=== PATIENT | female | born 1950 | race Caucasian/White ===

== ENCOUNTER 2017-08-01 20:09 | Emergency (ER) | payer BC, MEDICARE ==
[2017-08-01 20:29] VITALS: BP 141/63
--- NOTE | 2017-08-01 22:53 | EDM.PDOC ---
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 She states that she developed lower abdominal cramps and nausea without emesis around 18:30, shortly after eating dinner. She felt like she was breathing fast. She checked her pulse and found it to be irregular, around 20:10. She could feel her pulse in her ears and her fingertips. No chest pain, dyspnea, or diaphoresis. No urinary symptoms. The patient told me of her symptoms. We acquired an ECG, finding sinus tachycardia with multifocal PVCs. Based on this, I recommended that the patient check herself in to be evaluated. The patient states that she had similar symptoms last week, but they resolved fairly quickly, and the patient did not seek medical evaluation. The patient states that she suffered a [place] in 2008. At that time, she presented with bilateral antecubital pain, but never had chest pain, dyspnea, nausea, or diaphoresis. Further, her ECG was normal at the time. The patient's last stress test was in 2011. The patient denies skipping any medicines recently. The patient's PCP is Dr. Carney. - Related Data Allergies Allergy/AdvReac Type Severity Reaction Status Date / Time Penicillins Allergy Rash Verified 08/01/17 20:30 Home Meds: Home Meds Aspirin 81 mg PO BEDTIME 07/05/15 [History] Cholecalciferol (Vitamin D3) [Vitamin D3] 2,000 units PO BEDTIME 07/05/15 [ History] Clopidogrel [Plavix] 75 mg PO BEDTIME 07/05/15 [History] Losartan [Cozaar] 50 mg PO BEDTIME 07/05/15 [History] Pantoprazole [ProTONIX] 40 mg PO BEDTIME 07/05/15 [History] Rosuvastatin Calcium [Crestor] 20 mg PO BEDTIME 07/05/15 [History] Zolpidem Tartrate [Ambien] 5 mg PO BEDTIME 07/05/15 [History] metFORMIN [Glucophage] 1,000 mg PO BEDTIME 07/05/15 [History] Dapagliflozin Propanediol [Farxiga] 10 mg PO BEDTIME 08/01/17 [History] Metoprolol Tartrate 12.5 mg PO BEDTIME 08/01/17 [History] Venlafaxine [Effexor XR] 75 mg PO BEDTIME 08/01/17 [History] Past Medical History Cardiovascular History: Reports: CAD, High Cholesterol, Hypertension, [place] (2009) Gastrointestinal History: Reports: GERD 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: Musculoskeletal History: Reports: Arthritis, Osteoporosis Psychiatric History: Reports: Depression Endocrine/Metabolic History: Reports: Diabetes, Type II, Obesity/BMI 30+ - Infectious Disease History Infectious Disease History: Reports: Chicken Pox, Shingles - Past Surgical History HEENT Surgical History: Reports: Oral Surgery Cardiovascular Surgical History: Reports: Coronary Artery Stent (x , 2008), Vascular Surgery (Sclerotherapy bilateral lower extremities) GI Surgical History: Reports: Cholecystectomy Social & Family History - Tobacco Use Smoking Status *Q: Former Smoker Years of Tobacco use: 37 Packs/Tins Daily: 0.8 Month Tobacco Last Used: Quit 2008 - Caffeine Use Caffeine Use: Reports: Coffee - Alcohol Use Alcohol Use History: Yes Alcohol Use Frequency: Rarely - Recreational Drug Use Recreational Drug Use: No - Living Situation & Occupation Living situation: Reports: , with Spouse, with Family (2 grandchildren) 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 ED EXAM, GENERAL - Physical Exam Exam: See Below Exam Limited By: No Limitations General Appearance: Alert, WD/WN, No Apparent Distress Eye Exam: Bilateral Eye: Normal Inspection Ears: Normal External Exam, Hearing Grossly Normal Nose: Normal Inspection, No Blood Throat/Mouth: Normal Inspection, Normal Lips, Normal Voice, No Airway Compromise Head: Atraumatic, Normocephalic Neck: Normal Inspection, Full Range of Motion Respiratory/Chest: No Respiratory Distress, Lungs Clear, Normal Breath Sounds, No Accessory Muscle Use Cardiovascular: Normal Peripheral Pulses, Regular Rate, Rhythm, No Gallop, No JVD, No Murmur, No Rub Peripheral Pulses: 4+: Radial (L), Radial (R) GI/Abdominal: Normal Bowel Sounds, Soft, Non-Tender, No Organomegaly, No Distention, No Abnormal Bruit, No Mass, Other (Obese) (Female) Exam: Deferred Rectal (Female) Exam: Deferred Extremities: Normal Inspection, Normal Range of Motion, No Pedal Edema, Normal Capillary Refill Neurological: Alert, Oriented, Normal Cognition, No Motor/Sensory Deficits Psychiatric: Normal Affect Skin Exam: Warm, Dry, Intact, Normal Color, No Rash EKG INTERPRETATION EKG Date: 08/01/17 Time: 19:43 Rhythm: Other (Sinus tachycardia with multifocal PVC's) Rate (Beats/Min): 110 [place]: Normal P-Wave: Present QRS: Normal ST-T: Normal QT: Normal Comparison: NA - No Prior EKG Course - Vital Signs Last Recorded V/S: Last Vital Signs Temp 36.2 C 08/01/17 20:18 Pulse 105 H 08/01/17 20:18 Resp 18 08/01/17 20:18 BP 141/63 H 08/01/17 20:18 Pulse Ox 95 08/01/17 20:18 - Orders/Labs/Meds Orders: Active Orders 24 hr Category Date Time Status EKG Documentation Completion [RC] STAT Care 08/01/17 21:10 Active Chest 2V [CR] Stat Exams 08/01/17 21:10 Taken Labs: Laboratory Tests 08/01/17 08/01/17 08/01/17 Range/Units 21:25 21:25 21:25 WBC 8.43 (3.98-10.04) K/mm3 RBC 5.04 (3.98-5.22) M/mm3 Hgb 14.5 (11.2-15.7) gm/L Hct 43.9 (34.1-44.9) % MCV 87.1 (79.4-94.8) fl MCH 28.8 (25.6-32.2) pg MCHC 33.0 (32.2-35.5) g/dl RDW Std Deviation 42.2 (36.4-46.3) fL Plt Count 213 (182-369) K/mm3 MPV 9.9 (9.4-12.3) fl Neutrophils % (Manual) 60 (40-60) % Band Neutrophils % 0 (0-10) % Lymphocytes % (Manual) 21 (20-40) % Atypical Lymphs % 4 % Monocytes % (Manual) 11 H (2-10) % Eosinophils % (Manual) 3 (0.7-5.8) % Basophils % (Manual) 1 (0.1-1.2) Platelet Estimate Adequate Plt Morphology Comment Normal RBC Morph Comment Normal PT 10.9 (8.0-13.0) SECONDS INR 1.02 APTT 26 (22-36) SECONDS D-Dimer, Quantitative 0.32 (0.19-0.59) mg/L Sodium 138 (136-145) mEq/L Potassium 3.7 (3.5-5.1) mEq/L Chloride 103 (98-107) mEq/L Carbon Dioxide 23 (21-32) mEq/L Anion Gap 15.7 H (5-15) BUN 16 (7-18) mg/dL Creatinine 1.0 (0.55-1.02) mg/dL Est Cr Clr Drug Dosing 52.50 mL/min Estimated GFR (MDRD) 56 (>60) mL/min BUN/Creatinine Ratio 16.0 (14-18) Glucose 160 H (80-115) mg/dL Calcium 9.6 (8.5-10.1) mg/dL Total Bilirubin 0.4 (0.2-1.0) mg/dL AST 27 (15-37) U/L ALT 27 (14-59) U/L Alkaline Phosphatase 105 (46-116) U/L Troponin I < 0.017 (0.00-0.056) ng/mL Total Protein 7.3 (6.4-8.2) g/dl Albumin 3.8 (3.4-5.0) g/dl Globulin 3.5 gm/dL Albumin/Globulin Ratio 1.1 (1-2) - Re-Assessments/Exams Free Text/Narrative Re-Assessment/Exam: 08/01/17 23:28 Repeat ECG 07/24/2017 at 21:20 demonstrates a normal sinus rhythm at [address] or T-wave changes. No Q-waves are seen. No LAD. No LVH. No PVCs. This is an essentially normal ECG. 08/01/17 22:48 Two-view chest radiograph appears to be grossly normal. Cardiac silhouette is within normal limits. No pulmonary vascular congestion. No pleural effusions. No focal infiltrate. No pneumothorax. Formal read per the Radiologist pending. 08/01/17 22:52 Test results discussed with the patient. Today's workup is unremarkable, but excludes a PE or recent cardiac event. I will discharge her home. I would like her to notify the office of Dr. Carney of her ER visit. Departure - Departure Time of Disposition: 22:52 Disposition: Home, Self-Care 01 Condition: Good Clinical Impression: Frequent PVCs Instructions: Premature Ventricular Contraction Referrals: Siddhartha Carney MD [Primary Care Provider] - Forms: ED Department Discharge Additional Instructions: You were seen in the emergency room for rapid breathing and an irregular pulse. Workup in the ER included blood work, two ECGs, and a chest x-ray. Your initial ECG showed several PVCs, although your second ECG showed none. The PVCs were likely the cause of your palpitations. The cause of these recent PVCs is unknown. You have not suffered a blood clot to your lungs. You have not suffered a heart attack. Your electrolytes are normal. We recommend that you notify the office of your PCP, Dr. Carney, of your ER visit. If any other problems, please do not hesitate to return to the ER. - My Orders Last 24 Hours: My Active Orders 08/01/17 21:10 EKG Documentation Completion [RC] STAT Chest 2V [CR] Stat - Assessment/Plan Last 24 Hours: My Active Orders 08/01/17 21:10 EKG Documentation Completion [RC] STAT Chest 2V [CR] Stat
--- NOTE | 2017-08-02 07:16 | CR ---
Chest: Two views of the chest were obtained. Comparison: Prior chest x-ray of 06/07/11. Heart size is normal. Tortuous thoracic aorta is seen. Lungs are clear with no acute parenchymal densities. Bony structures show mild scoliosis within the spine. Previous cholecystectomy is noted. Impression: 1. Incidental findings. Nothing acute is appreciated on two-view chest x-ray. Diagnostic code #2
== END 2017-08-01 22:59 | disposition home or self-care (01) ==
LOC: JD.ED 20:09
DX: I49.3 Ventricular premature depolarization (principal); E78.00 Pure hypercholesterolemia, unspecified; I10 Essential (primary) hypertension; E11.9 Type 2 diabetes mellitus without complications; Z88.0 Allergy status to penicillin; Z79.899 Other long term (current) drug therapy; Z87.891 Personal history of nicotine dependence
CPT/HCPCS: 36415; 71046; 71046-26; 80053; 84484; 85025; 85379; 85610; 85730; 93005; 93010; 99284-25; 99285-25

== ENCOUNTER 2018-06-14 19:03 | Emergency (ER) | payer BC, MEDICARE ==
[2018-06-14 19:12] VITALS: BP 145/80
[2018-06-14] MEDS ORDERED: Oxymetazoline 0.05% Nasal Spray 15 ML Bottle NAS ONE (19:13)
[2018-06-14] MEDS ORDERED: Oxymetazoline 0.05% Nasal Spray 15 ML Bottle ONE (19:14)
--- NOTE | 2018-06-14 19:30 | EDM.PDOC ---
ED HPI GENERAL MEDICAL PROBLEM - General Chief Complaint: ENT Problem Stated Complaint: NOSEBLEED Time Seen by Provider: 06/14/18 19:04 Source of Information: Reports: Patient History Limitations: Reports: No Limitations - History of Present Illness INITIAL COMMENTS - FREE TEXT/NARRATIVE: This is a 68-year-old female. About 5 PM this evening she blew her nose she noted a little red tinge to the drainage. Then around 6:30 she felt like her nose was running when she reached up he was bleeding. The bleedings out the left nasal passage. She does take Plavix and low-dose aspirin on a daily basis. She states she's never had a bleeding nose before. She denies any recent colds or coughs. She denies any other acute symptoms. She does have an active drip and stream of blood out the left nasal passage. - Related Data Allergies Allergy/AdvReac Type Severity Reaction Status Date / Time Penicillins Allergy Rash Verified 08/01/17 20:30 Home Meds: Home Meds Aspirin 81 mg PO BEDTIME 07/05/15 [History] Cholecalciferol (Vitamin D3) [Vitamin D3] 2,000 units PO BEDTIME 07/05/15 [ History] Clopidogrel [Plavix] 75 mg PO BEDTIME 07/05/15 [History] Losartan [Cozaar] 50 mg PO BEDTIME 07/05/15 [History] Pantoprazole [ProTONIX] 40 mg PO BEDTIME 07/05/15 [History] Rosuvastatin Calcium [Crestor] 20 mg PO BEDTIME 07/05/15 [History] Zolpidem Tartrate [Ambien] 5 mg PO BEDTIME 07/05/15 [History] metFORMIN [Glucophage] 1,000 mg PO BEDTIME 07/05/15 [History] Dapagliflozin Propanediol [Farxiga] 10 mg PO BEDTIME 08/01/17 [History] Metoprolol Tartrate 12.5 mg PO BEDTIME 08/01/17 [History] Venlafaxine [Effexor XR] 75 mg PO BEDTIME 08/01/17 [History] Past Medical History Cardiovascular History: Reports: CAD, High Cholesterol, Hypertension, [place] Gastrointestinal History: Reports: GERD 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: Musculoskeletal History: Reports: Arthritis, Osteoporosis Psychiatric History: Reports: Depression Endocrine/Metabolic History: Reports: Diabetes, Type II, Obesity/BMI 30+ - Infectious Disease History Infectious Disease History: Reports: Chicken Pox, Shingles - Past Surgical History HEENT Surgical History: Reports: Oral Surgery Cardiovascular Surgical History: Reports: Coronary Artery Stent, Vascular Surgery GI Surgical History: Reports: Cholecystectomy Social & Family History - Family History Family Medical History: Noncontributory - Tobacco Use Smoking Status *Q: Former Smoker Used Tobacco, but Quit: Yes Month/Year Tobacco Last Used: 2009 Second Hand Smoke Exposure: No - Caffeine Use Caffeine Use: Reports: Coffee, Soda - Recreational Drug Use Recreational Drug Use: No - Living Situation & Occupation Living situation: Reports: , with Spouse, with Family (2 grandchildren) 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 - Review of Systems Review Of Systems: See Below Constitutional: Denies: Fever, Chills HEENT: Reports: Nosebleed Respiratory: Reports: No Symptoms Cardiovascular: Reports: No Symptoms Endocrine: Reports: No Symptoms GI/Abdominal: Reports: No Symptoms : Reports: No Symptoms Musculoskeletal: Reports: No Symptoms Skin: Reports: No Symptoms Neurological: Reports: No Symptoms Psychiatric: Reports: No Symptoms Hematologic/Lymphatic: Reports: No Symptoms ED EXAM, ENT - Physical Exam Exam: See Below Exam Limited By: No Limitations General Appearance: Alert, WD/WN, Anxious Eye Exam: Bilateral Eye: Normal Inspection Ears: Normal External Exam Nose: Active Bleeding, Other (The left nasal passage has active bleeding, I cannot see the actual bleeding site because of the blood and there is no possible way to cauterize it at this time) Mouth/Throat: Other (The blood is going down the back of her throat as well and she is spitting it out through her mouth.) Head: Normocephalic Neck: Supple Respiratory/Chest: No Respiratory Distress, Lungs Clear, Normal Breath Sounds Cardiovascular: Regular Rate, Rhythm, No Murmur GI/Abdominal: Soft Back: Full Range of Motion Extremities: Normal Inspection, Normal Range of Motion Neurological: Alert, Oriented Psychiatric: Anxious Skin: Warm, Dry ED ENT PROCEDURES - Epistaxis Procedure Indication: Uncontrolled Recent anticoagulants/antiplatlets: Yes (She is on Plavix and low-dose aspirin because she has stents) Uncontrolled HTN: No Recent septal/nasal surgery: No Site of bleeding: Left Nare, Posterior Clearing of clots: Patient Blew Nose Topical Meds: Topical Cocaine, Other (Afrin nasal spray) Ice pack to area: No Posterior packing: Other (Used a Rhino Rocket 5.5 cm coated with topical cocaine , there was immediate cessation of the nosebleed as I inflated the balloon.) Complications: No Course - Vital Signs Last Recorded V/S: Last Vital Signs Temp 97.7 F 06/14/18 19:08 Pulse 109 H 06/14/18 19:08 Resp 18 06/14/18 19:08 BP 145/80 H 06/14/18 19:08 Pulse Ox 98 06/14/18 19:08 - Orders/Labs/Meds Meds: Medications Discontinued Medications Generic Name Dose Route Start Last Admin Trade Name Nicole PRN Reason Stop Dose Admin Cocaine HCl 4 ml 06/14/18 19:11 06/14/18 19:14 Cocaine Hcl TOP 06/14/18 19:12 4 ml ONETIME ONE Administration Cocaine HCl Confirm 06/14/18 19:13 Cocaine Hcl Administered 06/14/18 19:14 Dose 4 ml .ROUTE .STK-MED ONE Oxymetazoline HCl 1 ml 06/14/18 19:13 06/14/18 19:14 Afrin Original 0.05% Nasal Ruston SHIVANI 06/14/18 19:14 1 spray ONETIME ONE Administration Oxymetazoline HCl Confirm 06/14/18 19:14 Afrin Original 0.05% Nasal Ruston Administered 06/14/18 19:15 Dose 15 ml .ROUTE .STK-MED ONE - Re-Assessments/Exams Free Text/Narrative Re-Assessment/Exam: 06/14/18 19:53 Patient has been doing well since I put in the Rhino Rocket. There is no bleeding from the nasal passage and no posterior bleeding down the pharynx. We have pumped the balloon up and she feels comfortable with that. I explained she needs to take it out in 24 hours by someone who knows how to take out the Rhino Rocket by putting saline on the cloth first and then deflating and gently wiggling it until it falls out. She understands. Departure - Departure Time of Disposition: 19:55 Disposition: Home, Self-Care 01 Condition: Good Clinical Impression: Epistaxis - Discharge Information *PRESCRIPTION DRUG MONITORING PROGRAM REVIEWED*: Not Applicable *COPY OF PRESCRIPTION DRUG MONITORING REPORT IN PATIENT NATHALY: Not Applicable Referrals: Siddhartha Carney MD [Primary Care Provider] - Forms: ED Department Discharge Additional Instructions: Do not touch or push on the Rhino Rocket leave it in place, in 24 hours go to a walk-in clinic or return to the ER for removal of the Rhino Rocket. Be certain they saturate the cloth with saline as they deflate the balloon and then gently wiggle the Rhino Rocket until it slides out, if there are any problems prior to this return to the ER for evaluation.
== END 2018-06-14 20:00 | disposition home or self-care (01) ==
LOC: JD.ED 19:03
DX: R04.0 Epistaxis (principal); E78.00 Pure hypercholesterolemia, unspecified; I10 Essential (primary) hypertension; I25.2 Old myocardial infarction; K21.9 Gastro-esophageal reflux disease without esophagitis; Z87.891 Personal history of nicotine dependence; Z79.01 Long term (current) use of anticoagulants; Z88.0 Allergy status to penicillin; Z79.82 Long term (current) use of aspirin; Z79.899 Other long term (current) drug therapy; Z79.84 Long term (current) use of oral hypoglycemic drugs
CPT/HCPCS: 30903; 99283-25

== ENCOUNTER 2018-06-15 14:14 | Emergency (ER) | payer BC, MEDICARE ==
[2018-06-15 14:26] VITALS: BP 136/74
--- NOTE | 2018-06-15 14:56 | EDM.PDOC ---
ED HPI GENERAL MEDICAL PROBLEM - General Chief Complaint: ENT Problem Stated Complaint: NOSEBLEED, PRESSURE AND HEADACHE Time Seen by Provider: 06/15/18 14:33 Source of Information: Reports: Patient, RN Notes Reviewed - History of Present Illness INITIAL COMMENTS - FREE TEXT/NARRATIVE: 68-year-old female comes in with nasal and left facial pain. To our ED about 20 hours ago with left nose bleed, quite severe. Left nasal balloon was placed I believe an AP Rhino Rocket. See that record for details. Told that she could come back in about 24 hours to have that removed. She started having more severe discomfort over the last few hours and now is having some slight oozing when she touches the distal end of the gauze of the balloon. There is no active bleeding from the distal nares and also she is not having current drainage down the back of her throat. She is on Plavix and aspirin. Those have both been stopped. Left Eye Pain Score (Numeric/FACES): 7 - Related Data Allergies Allergy/AdvReac Type Severity Reaction Status Date / Time Penicillins Allergy Rash Verified 08/01/17 20:30 Home Meds: Home Meds Aspirin 81 mg PO BEDTIME 07/05/15 [History] Cholecalciferol (Vitamin D3) [Vitamin D3] 2,000 units PO BEDTIME 07/05/15 [ History] Clopidogrel [Plavix] 75 mg PO BEDTIME 07/05/15 [History] Losartan [Cozaar] 50 mg PO BEDTIME 07/05/15 [History] Pantoprazole [ProTONIX] 40 mg PO BEDTIME 07/05/15 [History] Rosuvastatin Calcium [Crestor] 20 mg PO BEDTIME 07/05/15 [History] Zolpidem Tartrate [Ambien] 5 mg PO BEDTIME 07/05/15 [History] metFORMIN [Glucophage] 1,000 mg PO BEDTIME 07/05/15 [History] Dapagliflozin Propanediol [Farxiga] 10 mg PO BEDTIME 08/01/17 [History] Metoprolol Tartrate 50 mg PO BID 08/01/17 [History] Venlafaxine [Effexor XR] 75 mg PO BEDTIME 08/01/17 [History] Dulaglutide [Trulicity] 1.5 mg SQ FR 06/15/18 [History] Past Medical History Cardiovascular History: Reports: CAD, High Cholesterol, Hypertension, [place] Gastrointestinal History: Reports: 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: Musculoskeletal History: Reports: Arthritis, Osteoporosis Psychiatric History: Reports: Depression Endocrine/Metabolic History: Reports: Diabetes, Type II, Obesity/BMI 30+ - Infectious Disease History Infectious Disease History: Reports: Chicken Pox, Shingles - Past Surgical History HEENT Surgical History: Reports: Oral Surgery Cardiovascular Surgical History: Reports: Coronary Artery Stent, Vascular Surgery GI Surgical History: Reports: Cholecystectomy Social & Family History - Family History Family Medical History: Noncontributory - Tobacco Use Smoking Status *Q: Never Smoker - Caffeine Use Caffeine Use: Reports: None - Recreational Drug Use Recreational Drug Use: No - Living Situation & Occupation Living situation: Reports: , with Spouse, with Family (2 grandchildren) 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 - Review of Systems Review Of Systems: See Below Constitutional: Denies: Fever, Chills HEENT: Reports: Other (Left nasal discomfort and left facial pressure) Respiratory: Denies: Shortness of Breath Cardiovascular: Denies: Chest Pain GI/Abdominal: Denies: Nausea, Vomiting Skin: Reports: No Symptoms Neurological: Reports: No Symptoms ED EXAM, ENT - Physical Exam Exam: See Below General Appearance: Alert, Anxious, Moderate Distress Eye Exam: Bilateral Eye: PERRL Nose: Other (She does have a balloon present left nares, no active bleeding at this time) Mouth/Throat: Other (She does have mild tenderness of her left face, no visible swelling, there is no drainage of blood down the back of her throat) Head: No: Facial Swelling Neck: Supple Respiratory/Chest: No Respiratory Distress, Lungs Clear Cardiovascular: Regular Rate, Rhythm Extremities: Normal Inspection Neurological: Alert, Oriented, No Motor/Sensory Deficits Skin: Warm, Dry, Normal Color Course - Vital Signs Last Recorded V/S: Last Vital Signs Temp 98.4 F 06/15/18 14:18 Pulse 94 06/15/18 14:18 Resp 16 06/15/18 14:18 BP 136/74 06/15/18 14:18 Pulse Ox 97 06/15/18 14:18 - Orders/Labs/Meds Meds: Medications Discontinued Medications Generic Name Dose Route Start Last Admin Trade Name Freq PRN Reason Stop Dose Admin Lorazepam 1 mg 06/15/18 14:57 06/15/18 15:13 Ativan PO 06/15/18 14:58 1 mg ONETIME ONE Administration - Re-Assessments/Exams Free Text/Narrative Re-Assessment/Exam: 06/15/18 17:19 I did discuss with her that it is early to take the balloon out especially in view of her becoming aware of possible slight oozing when she does touch the distal balloon there is blood does transfer to her Kleenex. However no active bleeding from the balloon or down the back of her throat. Do strongly recommend leaving the balloon in place for 24 hours. If I take the balloon out now and she does start actively bleeding again then we're looking at another 24-48 hours of balloon placement, basically starting over. She did drive to get here and will be driving to go home. Therefore I have prescribed some hydrocodone for her through the [facility] to take home and also an Ativan to take home. She 's been instructed to take 0.5 mg Ativan when she does get home and then the other half milligram at bedtime this evening. Discharge instructions as documented. Departure - Departure Time of Disposition: 14:53 Disposition: Home, Self-Care 01 Condition: Fair Clinical Impression: Epistaxis, Facial pain - Discharge Information Instructions: Nosebleed, [id number], Sinus Headache, [id number] Referrals: Siddhartha Carney MD [Primary Care Provider] - Forms: ED Department Discharge Additional Instructions: Because of the slight oozing you are having we need to leave the balloon in for another 24 hours to give this more healing time. Return in about 24 hours for planned balloon removal. Rest, keep head elevated is much as possible. Ativan 0.5 mg when you get home. Scription also has been written for hydrocodone with the [facility] that you may take 1 tablet every 4-6 hours as needed for discomfort. Continue to not take aspirin and Plavix until otherwise directed.
[2018-06-15] MEDS ORDERED: LORazepam 1 MG Tab PO ONE (14:57)
== END 2018-06-15 15:15 | disposition home or self-care (01) ==
LOC: JD.ED 14:14
DX: R04.0 Epistaxis (principal); I10 Essential (primary) hypertension; K21.9 Gastro-esophageal reflux disease without esophagitis; Z79.899 Other long term (current) drug therapy; Z79.82 Long term (current) use of aspirin; Z88.0 Allergy status to penicillin
CPT/HCPCS: 99284; A9270; 99283

== ENCOUNTER 2018-06-16 16:17 | Emergency (ER) | payer BC, MEDICARE ==
[2018-06-16 16:41] VITALS: BP 136/83
--- NOTE | 2018-06-16 17:51 | EDM.PDOC ---
ED HPI GENERAL MEDICAL PROBLEM - General Chief Complaint: ENT Problem Stated Complaint: RE CK NOSEBLEED Time Seen by Provider: 06/16/18 17:10 Source of Information: Reports: Patient, RN Notes Reviewed - History of Present Illness INITIAL COMMENTS - FREE TEXT/NARRATIVE: 68 year old female comes to have nasal balloon removed. This was placed 2 days ago for severe L nose bleed. She normally takes plavix. She did present to the ED yesterday hoping to have it removed than but it had only been about 20 hours and she was oozing mildly at that time. She has had only slight oozing since that time. No blood running down back of her throat. Left Ear Pain Score (Numeric/FACES): 2 - Related Data Allergies Allergy/AdvReac Type Severity Reaction Status Date / Time Penicillins Allergy Rash Verified 06/16/18 16:36 Home Meds: Home Meds Aspirin 81 mg PO BEDTIME 07/05/15 [History] Cholecalciferol (Vitamin D3) [Vitamin D3] 2,000 units PO BEDTIME 07/05/15 [ History] Clopidogrel [Plavix] 75 mg PO BEDTIME 07/05/15 [History] Losartan [Cozaar] 50 mg PO BEDTIME 07/05/15 [History] Pantoprazole [ProTONIX] 40 mg PO BEDTIME 07/05/15 [History] Rosuvastatin Calcium [Crestor] 20 mg PO BEDTIME 07/05/15 [History] Zolpidem Tartrate [Ambien] 5 mg PO BEDTIME 07/05/15 [History] metFORMIN [Glucophage] 1,000 mg PO BEDTIME 07/05/15 [History] Dapagliflozin Propanediol [Farxiga] 10 mg PO BEDTIME 08/01/17 [History] Metoprolol Tartrate 50 mg PO BID 08/01/17 [History] Venlafaxine [Effexor XR] 75 mg PO BEDTIME 08/01/17 [History] Dulaglutide [Trulicity] 1.5 mg SQ FR 06/15/18 [History] Past Medical History Cardiovascular History: Reports: CAD, High Cholesterol, Hypertension, [place] Gastrointestinal History: Reports: GERD 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: Musculoskeletal History: Reports: Arthritis, Osteoporosis Psychiatric History: Reports: Depression Endocrine/Metabolic History: Reports: Diabetes, Type II, Obesity/BMI 30+ - Infectious Disease History Infectious Disease History: Reports: Chicken Pox, Shingles - Past Surgical History HEENT Surgical History: Reports: Oral Surgery Cardiovascular Surgical History: Reports: Coronary Artery Stent, Vascular Surgery GI Surgical History: Reports: Cholecystectomy Social & Family History - Family History Family Medical History: Noncontributory - Caffeine Use Caffeine Use: Reports: None - Living Situation & Occupation Living situation: Reports: , with Spouse, with Family (2 grandchildren) 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 No: Active Bleeding Mouth/Throat: Normal Inspection (no blood) Respiratory/Chest: No Respiratory Distress Neurological: Alert, Oriented, No Motor/Sensory Deficits Skin: Warm, Dry, Normal Color Course - Vital Signs Last Recorded V/S: Last Vital Signs Temp 99.1 F 06/16/18 16:37 Pulse 99 06/16/18 16:37 Resp 16 06/16/18 16:37 BP 136/83 06/16/18 16:37 Pulse Ox 97 06/16/18 16:37 - Re-Assessments/Exams Free Text/Narrative Re-Assessment/Exam: 06/19/18 13:29 balloon removed without difficulty, no further bleeding. Departure - Departure Time of Disposition: 17:50 Disposition: Home, Self-Care 01 Condition: Fair Clinical Impression: Epistaxis - Discharge Information Instructions: Nosebleed, [id number] Referrals: Siddhartha Carney MD [Primary Care Provider] - Forms: ED Department Discharge Additional Instructions: Vaseline to distal nose 2-3 times daily for moisturization, try not to blow on the left for at least another day or 2, pressure if needed for any further bleeding, you can resume your Plavix this evening if you have no further bleeding. return to ED as needed.
== END 2018-06-16 18:05 | disposition home or self-care (01) ==
LOC: JD.ED 16:17
DX: R04.0 Epistaxis (principal); I25.10 Atherosclerotic heart disease of native coronary artery without angina pectoris; K21.9 Gastro-esophageal reflux disease without esophagitis; I25.2 Old myocardial infarction; F32.9 Major depressive disorder, single episode, unspecified; E78.00 Pure hypercholesterolemia, unspecified; I10 Essential (primary) hypertension; Z79.82 Long term (current) use of aspirin; Z79.891 Long term (current) use of opiate analgesic; Z79.84 Long term (current) use of oral hypoglycemic drugs; Z79.899 Other long term (current) drug therapy; Z88.0 Allergy status to penicillin; Z95.5 Presence of coronary angioplasty implant and graft; Z90.49 Acquired absence of other specified parts of digestive tract; Z98.890 Other specified postprocedural states
CPT/HCPCS: 99282; 99283

== ENCOUNTER 2019-12-26 20:52 | Emergency (ER) | payer MEDICARE, BC ==
[2019-12-26 21:04] VITALS: BP 140/74; PULSE 107
--- NOTE | 2019-12-26 21:56 | EDM.PDOC ---
ED HPI GENERAL MEDICAL PROBLEM - General Chief Complaint: Upper Extremity Injury/Pain Stated Complaint: LEFT HAND FRACTURE Time Seen by Provider: 12/26/19 21:07 Source of Information: Reports: Patient History Limitations: Reports: No Limitations - History of Present Illness INITIAL COMMENTS - FREE TEXT/NARRATIVE: Patient is a 69-year-old female who presents with complaints of pain to her left hand over the fifth metacarpal. Patient states 2 days ago she fell while outside and landed on her left side. She has some slight discomfort in her left ribs, however the majority of her pain is located in her left hand. X-rays were completed on an outpatient basis earlier today and she was found to have a nondisplaced fracture within the base of the fifth metacarpal. She denies any numbness or tingling to the extremity. She did not hit her head when she fell. Denies any back pain. Left Hand Pain Score (Numeric/FACES): 4 Left Cheek Pain Score (Numeric/FACES): 6 - Related Data Allergies Allergy/AdvReac Type Severity Reaction Status Date / Time Penicillins Allergy Rash Verified 12/26/19 21:04 Home Meds: Home Meds Aspirin 81 mg PO BEDTIME 07/05/15 [History] Cholecalciferol (Vitamin D3) [Vitamin D3] 2,000 units PO BEDTIME 07/05/15 [ History] Clopidogrel [Plavix] 75 mg PO BEDTIME 07/05/15 [History] Losartan [Cozaar] 50 mg PO BEDTIME 07/05/15 [History] Pantoprazole [ProTONIX] 40 mg PO BEDTIME 07/05/15 [History] Rosuvastatin Calcium [Crestor] 20 mg PO BEDTIME 07/05/15 [History] Zolpidem Tartrate [Ambien] 5 mg PO BEDTIME 07/05/15 [History] metFORMIN [Glucophage] 1,000 mg PO BEDTIME 07/05/15 [History] Dapagliflozin Propanediol [Farxiga] 10 mg PO BEDTIME 08/01/17 [History] Metoprolol Tartrate 50 mg PO BID 08/01/17 [History] Venlafaxine [Effexor XR] 75 mg PO BEDTIME 08/01/17 [History] Dulaglutide [Trulicity] 1.5 mg SQ FR 06/15/18 [History] Past Medical History Cardiovascular History: Reports: CAD, High Cholesterol, Hypertension, [place] Gastrointestinal History: Reports: 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: Musculoskeletal History: Reports: Arthritis, Osteoporosis Psychiatric History: Reports: Depression Endocrine/Metabolic History: Reports: Diabetes, Type II, Obesity/BMI 30+ - Infectious Disease History Infectious Disease History: Reports: Chicken Pox, Shingles - Past Surgical History HEENT Surgical History: Reports: Oral Surgery Cardiovascular Surgical History: Reports: Coronary Artery Stent, Vascular Surgery GI Surgical History: Reports: Cholecystectomy Social & Family History - Family History Family Medical History: Noncontributory - Tobacco Use Smoking Status *Q: Former Smoker Used Tobacco, but Quit: Yes Month/Year Tobacco Last Used: 2008 Second Hand Smoke Exposure: No - Caffeine Use Caffeine Use: Reports: Coffee, Soda - Recreational Drug Use Recreational Drug Use: No - Living Situation & Occupation Living situation: Reports: with Family, , with Spouse 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 Left hand pain over the fifth metacarpal.) Skin: Reports: No Symptoms Neurological: Reports: No Symptoms Psychiatric: Reports: No Symptoms ED EXAM, GENERAL - Physical Exam Exam: See Below Exam Limited By: No Limitations General Appearance: Alert, WD/WN, No Apparent Distress Respiratory/Chest: No Respiratory Distress, Lungs Clear, Normal Breath Sounds, No Accessory Muscle Use, Other (Underlies tenderness throughout the left chest wall. No obvious ecchymosis or step-offs.) Cardiovascular: Normal Peripheral Pulses, Regular Rate, Rhythm, No Edema, No Gallop, No JVD, No Murmur, No Rub Extremities: Other (Tenderness to palpation and mild swelling to the dorsal aspect of the left hand at the base of the fifth metacarpal.) Neurological: Alert, Oriented, CN II-XII Intact, Normal Cognition, Normal Gait, Normal Reflexes, No Motor/Sensory Deficits Psychiatric: Normal Affect, Normal Mood Skin Exam: Warm, Dry, Intact, Normal Color, No Rash ED TRAUMA EXTREMITY PROCEDURES - Splinting Left Upper Extremity Splint Site: Left hand Pre-Procedure NV Status: Normal Post-Procedure NV Status: Normal Splint Material: Fiberglass Splint Design: Other (Ulnar gutter) Applied & Form Fitted By: Provider Provider Post-Splint Application NV Check: NV Status Normal, Good Position Complications: No Course - Vital Signs Last Recorded V/S: Last Vital Signs Temp 97.5 F 12/26/19 21:01 Pulse 107 H 12/26/19 21:01 Resp 18 12/26/19 21:01 BP 140/74 12/26/19 21:01 Pulse Ox 94 L 12/26/19 21:01 Departure - Departure Time of Disposition: 21:54 Disposition: Home, Self-Care 01 Condition: Good Clinical Impression: Fracture of metacarpal bone Qualifiers: Encounter type: initial encounter Metacarpal bone: fifth Fracture type: closed Metacarpal location: base Fracture alignment: nondisplaced Laterality: left Qualified Code(s): S62.347A - Nondisplaced fracture of base of fifth metacarpal bone, left hand, initial encounter for closed fracture - Discharge Information *PRESCRIPTION DRUG MONITORING PROGRAM REVIEWED*: No *COPY OF PRESCRIPTION DRUG MONITORING REPORT IN PATIENT NATHALY: No Instructions: Metacarpal Fracture, [id number] Referrals: Siddhartha Carney MD [Primary Care Provider] - Nando Rod MD [Physician] - Additional Instructions: You were seen in the emergency department today for pain and swelling to your left hand after falling 2 days ago. X-rays were done and show a nondisplaced fracture to the base of the fifth metacarpal. An ulnar gutter splint has been applied. This should be kept warm and dry and stay intact until seen by orthopedics. Recommend that you call and schedule appointment with Dr. Rod, orthopedist at his next available appointment. Number to schedule with him as listed below. He may use [id number] Tylenol as needed for pain. Ice and elevation may help to reduce the swelling. Return to the ER as needed. Sepsis Event Note (ED) - Evaluation Sepsis Screening Result: No Definite Risk - Focused Exam Vital Signs: Vital Signs Temp Pulse Resp BP Pulse Ox 12/26/19 21:01 97.5 F 107 H 18 140/74 94 L
== END 2019-12-26 22:54 | disposition home or self-care (01) ==
LOC: JD.ED 20:52
DX: S62.347A Nondisplaced fracture of base of fifth metacarpal bone, left hand, initial encounter for closed fracture (principal); E11.9 Type 2 diabetes mellitus without complications; I10 Essential (primary) hypertension; E78.00 Pure hypercholesterolemia, unspecified; I25.10 Atherosclerotic heart disease of native coronary artery without angina pectoris; I25.2 Old myocardial infarction; K21.9 Gastro-esophageal reflux disease without esophagitis; E66.9 Obesity, unspecified; Z87.891 Personal history of nicotine dependence; Z95.5 Presence of coronary angioplasty implant and graft; Z90.49 Acquired absence of other specified parts of digestive tract; Z98.890 Other specified postprocedural states; Z88.0 Allergy status to penicillin; Z79.899 Other long term (current) drug therapy; Z68.31 Body mass index [BMI] 31.0-31.9, adult; W19.XXXA Unspecified fall, initial encounter
CPT/HCPCS: 29125; 99282; 99283

== ENCOUNTER 2020-06-28 09:42 | Emergency (ER) | payer MEDICARE, BC ==
[2020-06-28 10:08] VITALS: BP 143/89; PULSE 96
[2020-06-28] MEDS ORDERED: predniSONE 20 MG Tab PO ONE (10:28)
[2020-06-28] MEDS ORDERED: traMADol 50 MG Tab PO ONE (10:31)
--- NOTE | 2020-06-28 10:38 | EDM.PDOC ---
ED HPI GENERAL MEDICAL PROBLEM - General Chief Complaint: Lower Extremity Injury/Pain Stated Complaint: LT KNEE PAIN Time Seen by Provider: 06/28/20 10:09 Source of Information: Reports: Patient, RN Notes Reviewed - History of Present Illness INITIAL COMMENTS - FREE TEXT/NARRATIVE: 70 yr old lady with severe L knee pain. Pain started about 10 to 14 days ago and has steadily been getting worse. No known injury but is on her feet a lot with work and home duties. There is pain with knee motion and wt bearing, no pain at rest. Hx of R sciatica but no hx of prior knee problems. Has an Ortho appt. about 8 days from now. Left Knee Pain Score (Numeric/FACES): 10 - Related Data Allergies Allergy/AdvReac Type Severity Reaction Status Date / Time Penicillins Allergy Rash Verified 06/28/20 10:08 Home Meds: Home Meds Aspirin 81 mg PO BEDTIME 07/05/15 [History] Cholecalciferol (Vitamin D3) [Vitamin D3] 2,000 units PO BEDTIME 07/05/15 [History] Clopidogrel [Plavix] 75 mg PO BEDTIME 07/05/15 [History] Losartan [Cozaar] 50 mg PO BEDTIME 07/05/15 [History] Pantoprazole [ProTONIX] 40 mg PO BEDTIME 07/05/15 [History] Rosuvastatin Calcium [Crestor] 20 mg PO BEDTIME 07/05/15 [History] Zolpidem Tartrate [Ambien] 5 mg PO BEDTIME 07/05/15 [History] metFORMIN [Glucophage] 1,000 mg PO BEDTIME 07/05/15 [History] Dapagliflozin Propanediol [Farxiga] 10 mg PO BEDTIME 08/01/17 [History] Metoprolol Tartrate 50 mg PO BID 08/01/17 [History] Venlafaxine [Effexor XR] 75 mg PO BEDTIME 08/01/17 [History] Dulaglutide [Trulicity] 1.5 mg SQ FR 06/15/18 [History] predniSONE [Prednisone] 20 mg PO DAILY #4 tablet 06/28/20 [Rx] traMADol [Ultram] 50 mg PO Q6H PRN #20 tab 06/28/20 [Rx] Past Medical History Cardiovascular History: Reports: CAD, High Cholesterol, Hypertension, [place] Gastrointestinal History: Reports: 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: Musculoskeletal History: Reports: Arthritis, Osteoporosis Psychiatric History: Reports: Depression Endocrine/Metabolic History: Reports: Diabetes, Type II, Obesity/BMI 30+ - Infectious Disease History Infectious Disease History: Reports: Chicken Pox, Shingles - Past Surgical History HEENT Surgical History: Reports: Oral Surgery Cardiovascular Surgical History: Reports: Coronary Artery Stent, Vascular Surgery GI Surgical History: Reports: Cholecystectomy Musculoskeletal Surgical History: Reports: Other (See Below) Other Musculoskeletal Surgeries/Procedures:: sclerotherapy right upper leg Social & Family History - Family History Family Medical History: No Pertinent Family History - Tobacco Use Tobacco Use Status *Q: Former Tobacco User Used Tobacco, but Quit: Yes Month/Year Tobacco Last Used: 10 yrs ago - Caffeine Use Caffeine Use: Reports: Coffee, Soda - Living Situation & Occupation Living situation: Reports: with Family, , with Spouse 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 Mild diffuse swelling. No visible or palpable effusion. Good ROM with mild discomfort. ) Course - Vital Signs Last Recorded V/S: Last Vital Signs Temp 98.3 F 06/28/20 10:05 Pulse 96 06/28/20 10:05 Resp 16 06/28/20 10:05 BP 143/89 H 06/28/20 10:05 Pulse Ox 95 06/28/20 10:05 - Orders/Labs/Meds Meds: Medications Discontinued Medications Generic Name Dose Route Start Last Admin Trade Name Elbertq PRN Reason Stop Dose Admin Prednisone 20 mg 06/28/20 10:28 06/28/20 10:33 Prednisone PO 06/28/20 10:29 20 mg ONETIME ONE Administration Tramadol HCl 50 mg 06/28/20 10:31 06/28/20 10:34 Ultram PO 06/28/20 10:32 50 mg ONETIME ONE Administration - Re-Assessments/Exams Free Text/Narrative Re-Assessment/Exam: 06/28/20 12:23 X rays were done at [facility] in clinic 3 days ago. Will not repeat Xrays at this time. Have given prednisone 20 mg PO and tramadol 50 mg PO. Discharge instr. as documented. Departure - Departure Time of Disposition: 10:37 Disposition: Home, Self-Care 01 Condition: Fair Clinical Impression: Degenerative arthritis of left knee Knee pain, left Qualifiers: Chronicity: acute Qualified Code(s): M25.562 - Pain in left knee - Discharge Information Prescriptions: predniSONE [Prednisone] 20 mg PO DAILY #4 tablet traMADol [Ultram] 50 mg PO Q6H PRN #20 tab PRN Reason: Pain Instructions: Acute Knee Pain, Adult Referrals: Siddhartha Carney MD [Primary Care Provider] - Forms: ED Department Discharge, ED Return to Work/School Form Additional Instructions: Continue to wear L knee brace, Prednisone 20 mg daily today and for the next 4 days. Tylenol 1300 morning and evening with 650 mg in the afternoon. You may take tramadol 50 mg 2 to 3 times daily in between or around your doses of tylenol. Prescriptions have been sent to [facility] at the [facility]. REST knee as much as possible. Off work tomorrow. Return to work Sunday or Sunday as tolerated but sedentary work activity only, no walking at work until after you see Dr Rod Jul. 3. Return to ED as needed if symptoms worsening in any way. Sepsis Event Note (ED) - Evaluation Sepsis Screening Result: No Definite Risk - Focused Exam Vital Signs: Vital Signs Temp Pulse Resp BP Pulse Ox 06/28/20 10:05 98.3 F 96 16 143/89 H 95
== END 2020-06-28 11:00 | disposition home or self-care (01) ==
LOC: JD.ED 09:42
DX: M17.12 Unilateral primary osteoarthritis, left knee (principal); I25.2 Old myocardial infarction; I10 Essential (primary) hypertension; I25.10 Atherosclerotic heart disease of native coronary artery without angina pectoris; E11.9 Type 2 diabetes mellitus without complications; E66.9 Obesity, unspecified; K21.9 Gastro-esophageal reflux disease without esophagitis; Z68.31 Body mass index [BMI] 31.0-31.9, adult; Z87.891 Personal history of nicotine dependence; Z88.0 Allergy status to penicillin; Z79.82 Long term (current) use of aspirin; Z79.84 Long term (current) use of oral hypoglycemic drugs; Z79.02 Long term (current) use of antithrombotics/antiplatelets; Z79.899 Other long term (current) drug therapy
CPT/HCPCS: 99283; A9270; J7512

== ENCOUNTER 2024-12-02 07:39 | Day surgery (SDC) | payer MEDICARE, BC ==
[~2024-12-02 07:39] MED LIST: Sodium Chloride 0.9% 10 ML Syringe FLUSH PRN; Sodium Chloride 0.9% 10 ML Syringe FLUSH SCH
[2024-12-02] MEDS: Lactated Ringers 1,000 ML IV SCH (08:00)
[2024-12-02] MEDS ORDERED: Ondansetron 4 MG/2 ML SDV ONE (08:20)
[2024-12-02] MEDS ORDERED: Dexamethasone 4 MG/ML 5 ML MDV ONE (08:20)
[2024-12-02] MEDS ORDERED: Propofol 200 MG/20 ML SDV ONE (08:20)
[2024-12-02] MEDS ORDERED: fentaNYL 100 MCG/2 ML SDV ONE (08:20)
[2024-12-02] MEDS ORDERED: ePHEDrine 50 MG/ML SDV ONE (08:37)
[2024-12-02] MEDS ORDERED: fentaNYL 100 MCG/2 ML SDV IVPUSH PRN (09:12)
[2024-12-02] MEDS ORDERED: Ondansetron 4 MG/2 ML SDV IVPUSH PRN (09:12)
[2024-12-02 11:18] VITALS: BP 126/70; PULSE 88
== END 2024-12-02 10:45 | disposition home or self-care (01) ==
LOC: JD.SDS 07:39
PROVIDERS: ATTEND Obstetrics & Gynecology
DX: C54.1 Malignant neoplasm of endometrium (principal); I25.10 Atherosclerotic heart disease of native coronary artery without angina pectoris; E11.9 Type 2 diabetes mellitus without complications; I10 Essential (primary) hypertension; E78.00 Pure hypercholesterolemia, unspecified; E66.9 Obesity, unspecified; Z68.30 Body mass index [BMI] 30.0-30.9, adult; Z88.0 Allergy status to penicillin; Z79.4 Long term (current) use of insulin; Z79.84 Long term (current) use of oral hypoglycemic drugs; Z87.891 Personal history of nicotine dependence; Z79.899 Other long term (current) drug therapy
CPT/HCPCS: 58558; 88305; 88341; 88342; A9270; J1100; J2003; J2405; J2704; J3010; J7120; 00952; 99100; J3490